=== PATIENT | female | born 1940 | race Caucasian/White ===

== ENCOUNTER 2024-07-25 05:59 | Emergency (ER) | payer MEDICARE, OTHER ==
[~2024-07-25] VITALS: Ht 165.1 cm; Wt 81.2 kg
[2024-07-25] MEDS ORDERED: LIDOCAINE 1%-EPI 1:100,000 20 ML VIAL ONE (06:17)
[2024-07-25] MEDS ORDERED: TDAP [DIPH/PERTUSSIS/TET] 0.5 ML VIAL IM ONE (06:19)
[2024-07-25] MEDS: TDAP [DIPH/PERTUSSIS/TET] 0.5 ML VIAL IM ONE (06:23)
[2024-07-25 06:30] VITALS: TEMP 98
[2024-07-25] MEDS: LIDOCAINE 1%-EPI 1:100,000 20 ML VIAL TP ONE (07:28)
[2024-07-25 07:50] VITALS: BP 146/84; O2SAT 98
== END 2024-07-25 07:51 | disposition home or self-care (01) ==
LOC: ER 06:04
DX: S01.81XA Laceration without foreign body of other part of head, initial encounter (principal); I10 Essential (primary) hypertension; H11.32 Conjunctival hemorrhage, left eye; Z85.3 Personal history of malignant neoplasm of breast; W01.198A Fall on same level from slipping, tripping and stumbling with subsequent striking against other object, initial encounter; Y93.89 Activity, other specified; Y92.59 Other trade areas as the place of occurrence of the external cause; Y99.8 Other external cause status
CPT/HCPCS: 99285; 72125; 12015; 90471; 90715; 70450; 70486; A6403; J3490